=== PATIENT | female | born 1990 | race Caucasian/White ===

== ENCOUNTER 2022-10-18 13:22 | Emergency (ER) | payer OTHER, BC ==
[2022-10-18 16:31] LABS: POTASSIUM,K 3.5 mmol/L (3.5-5.1)
== END 2022-10-18 18:12 | disposition home or self-care (01) ==
LOC: MW.ED 13:22
DX: O20.0 Threatened abortion (principal); Z3A.01 Less than 8 weeks gestation of pregnancy
CPT/HCPCS: 36415; 76817; 76817-26; 80053; 81001; 84702; 85025; 86900; 86901; 87086; 99284

== ENCOUNTER 2022-10-27 18:44 | Emergency (ER) | payer OTHER, BC ==
[2022-10-27 20:33] LABS: CARBON DIOXIDE,CO2 31.2 mmol/L (21.0-32.0); POTASSIUM,K 3.9 mmol/L (3.5-5.1)
== END 2022-10-27 21:03 | disposition home or self-care (01) ==
LOC: MW.ED 18:44
DX: O20.0 Threatened abortion (principal); Z79.899 Other long term (current) drug therapy
CPT/HCPCS: 36415; 80053; 81001; 84702; 85025; 99284

== ENCOUNTER 2023-06-18 12:51 | Emergency (ER) | payer BC, OTHER ==
[2023-06-18] MEDS: diphenhydrAMINE 50 MG Cap PO ONE (15:06)
[2023-06-18] MEDS: Famotidine 20 MG Tab PO ONE (15:06)
== END 2023-06-18 16:16 | disposition home or self-care (01) ==
LOC: MW.ED 12:51
DX: T78.40XA Allergy, unspecified, initial encounter (principal)
CPT/HCPCS: 99283; A9270

== ENCOUNTER 2023-08-31 08:04 | Emergency (ER) | payer OTHER, BC | END 2023-08-31 10:58 | disposition home or self-care (01) | LOC: MW.ED 08:04 | DX: O20.0 Threatened abortion (principal); Z79.82 Long term (current) use of aspirin; Z79.899 Other long term (current) drug therapy; Z3A.19 19 weeks gestation of pregnancy | CPT/HCPCS: 76805; 76805-26; 99283; 99284 ==

== ENCOUNTER 2024-01-13 09:29 | Inpatient (IN) | payer BC, OTHER ==
[2024-01-13] MEDS ORDERED: Carboprost Tromethamine 250 MCG/1 mL Vial IM PRN (10:16)
[2024-01-13] MEDS ORDERED: Sodium Chloride 0.9% 20 ML SDV IV PRN (10:16)
[2024-01-13] MEDS ORDERED: Tranexamic Acid IN NACL,ISO-OS 1,000 MG in Premix Bag 1 BAG IV PRN (10:16)
[2024-01-13] MEDS ORDERED: Sodium Chloride 0.9% 2.5 ML Syringe FLUSH PRN (10:16)
[2024-01-13] MEDS ORDERED: Sodium Chloride 0.9% 10 ML Syringe FLUSH PRN (10:16)
[2024-01-13] MEDS ORDERED: Water For Irrigation,Sterile 1,000 ML Container IRR PRN (10:16)
[2024-01-13] MEDS ORDERED: Misoprostol 200 MCG Tab PO PRN (10:16)
[2024-01-13] MEDS ORDERED: Butorphanol 2 MG/ML SDV IVPUSH PRN (10:16)
[2024-01-13] MEDS ORDERED: Methylergonovine 0.2 MG/1 ML Amp IM PRN (10:16)
[2024-01-13] MEDS ORDERED: Lidocaine 1% 50 ML MDV INJECT PRN (10:16)
[2024-01-13] MEDS: Lactated Ringers 1,000 ML IV SCH (10:18)
[2024-01-13] MEDS ORDERED: Oxytocin/0.9 % Sodium Chloride 30 UNIT/500 ML BAG IV SCH (10:30)
[2024-01-13 10:34] LABS: HEMATOCRIT 40.3 % (37.0-47.0); HEMOGLOBIN 13.9 g/dL (12.0-16.0); MEAN CORPUSCULAR HGB CONC 34.5 g/dL (32.0-36.0); MEAN CORPUSCULAR VOLUME 89.8 fL (83.0-99.0); MEAN PLATELET VOLUME 9.4 fL (9.4-12.3); PLATELET COUNT,PLT 331 K/uL (150-400); RED BLOOD CELL COUNT 4.49 M/uL (4.10-5.30); WHITE BLOOD CELL COUNT,WBC 7.97 K/uL (3.9-11.3)
[2024-01-13] MEDS: Ropivacaine HCl/PF 400 MG in Premix Bag 1 BAG EPIDUR SCH (11:29)
[2024-01-13] MEDS: Bupivacaine 0.5% 10 ML SDV ONE (11:30)
[2024-01-13] MEDS: Phenylephrine HCl 0.5 MG/5 ML AMP ONE (11:30)
[2024-01-13] MEDS: Ropivacaine HCl/PF 200 ML ONE (11:30)
[2024-01-13] MEDS ORDERED: ePHEDrine 50 MG/ML SDV IVPUSH PRN ×2 (11:37)
[2024-01-13] MEDS ORDERED: Phenylephrine HCl 0.5 MG/5 ML AMP IVPUSH PRN (11:37)
[2024-01-13] MEDS ORDERED: Terbutaline 1 MG/ML SDV SUBCUT PRN (13:41)
[2024-01-13] MEDS: Oxytocin/0.9 % Sodium Chloride 30 UNIT/500 ML BAG IV SCH (13:55)
[2024-01-13] MEDS ORDERED: Bupivacaine 0.25% 30 ML SDV ONE (22:36)
[2024-01-13] MEDS ORDERED: Oxytocin 10 Units/1 ML SDV ONE (22:36)
[2024-01-13] MEDS ORDERED: EPINEPHrine 1 MG/1 ML Amp ONE (22:36)
[2024-01-13] MEDS ORDERED: ceFAZolin 1 GM Vial ONE (22:36)
[2024-01-13] MEDS ORDERED: Morphine PF 10 MG/10 ML SDV ONE (22:36)
[2024-01-13] MEDS ORDERED: Ketorolac 30 MG/ML SDV ONE (22:36)
[2024-01-13] MEDS ORDERED: Ondansetron 4 MG/2 ML SDV ONE (22:36)
[2024-01-13] MEDS ORDERED: Ropivacaine 0.5% 5 MG/ML 30 ML SDV ONE (22:36)
[2024-01-13] MEDS ORDERED: fentaNYL 100 MCG/2 ML SDV ONE (22:36)
[2024-01-13] MEDS ORDERED: Bupivacaine 0.5% 10 ML SDV ONE (22:37)
[2024-01-13] MEDS ORDERED: Lidocaine 2% 5 ML SDV ONE (22:37)
[2024-01-13] MEDS ORDERED: Azithromycin 500 MG Vial ONE (23:01)
[2024-01-14] MEDS ORDERED: fentaNYL 100 MCG/2 ML SDV IVPUSH PRN (00:04)
[2024-01-14] MEDS ORDERED: diphenhydrAMINE 50 MG/ML SDV IVPUSH PRN ×2 (00:04→00:19)
[2024-01-14] MEDS ORDERED: Acetaminophen/oxyCODONE 325-5 MG Tab PO PRN (00:04)
[2024-01-14] MEDS ORDERED: Naloxone 0.4 MG/ML SDV IVPUSH PRN (00:04)
[2024-01-14] MEDS ORDERED: HYDROmorphone 1 MG/ML Syringe IVPUSH PRN (00:04)
[2024-01-14] MEDS ORDERED: Ondansetron 4 MG/2 ML SDV IVPUSH PRN ×3 (00:04→00:19)
[2024-01-14] MEDS ORDERED: Metoclopramide 10 MG/2 ML SDV IVPUSH PRN (00:04)
[2024-01-14] MEDS ORDERED: droPERidol 5 MG/2 ML SDV IVPUSH PRN (00:04)
[2024-01-14] MEDS ORDERED: ePHEDrine 50 MG/ML SDV IVPUSH PRN (00:04)
[2024-01-14] MEDS ORDERED: fentaNYL 50 MCG/ML SDV IVPUSH PRN (00:04)
[2024-01-14] MEDS ORDERED: Morphine 2 MG/ML SYRINGE IVPUSH PRN (00:04)
[2024-01-14] MEDS ORDERED: Albuterol 0.083% 2.5 MG/3 ML Neb Soln NEB PRN (00:04)
[2024-01-14] MEDS ORDERED: Methylergonovine 0.2 MG/1 ML Amp IM PRN (00:19)
[2024-01-14] MEDS ORDERED: Oxytocin 10 Units/1 ML SDV IM PRN (00:19)
[2024-01-14] MEDS ORDERED: Bisacodyl 10 MG Supp RECTAL PRN (00:19)
[2024-01-14] MEDS ORDERED: Lanolin 100% Cream 7 GM Tube TOP PRN (00:19)
[2024-01-14] MEDS ORDERED: Misoprostol 200 MCG Tab RECTAL PRN (00:19)
[2024-01-14] MEDS ORDERED: Oxytocin/0.9 % Sodium Chloride 30 UNIT/500 ML BAG IV SCH (00:30)
[2024-01-14] MEDS ORDERED: Lactated Ringers 1,000 ML IV SCH (00:30)
[2024-01-14] MEDS: Ketorolac 30 MG/ML SDV IVPUSH SCH (01:32)
[2024-01-14] MEDS: Acetaminophen 1,000 MG in Premix Bag 1 BAG IV SCH (01:33)
[2024-01-14 06:11] LABS: BASOPHILS ABSOLUTE AUTO 0.02 K/uL (0.00-0.20); BASOPHILS PERCENT AUTO 0.1 % (0.0-1.0); HEMATOCRIT 33.9 % (37.0-47.0); HEMOGLOBIN 11.9 g/dL (12.0-16.0); IMMATURE GRAN ABSOLUTE AUTO 0.12 K/uL (0.00-0.05); IMMATURE GRAN PERCENT AUTO 0.7 % (0.0-0.4); LYMPHOCYTES PERCENT AUTO 6.7 % (24.0-44.0); MEAN CORPUSCULAR HEMOGLOBIN 31.5 pg (28.0-32.0); MEAN CORPUSCULAR HGB CONC 35.1 g/dL (32.0-36.0); MEAN CORPUSCULAR VOLUME 89.7 fL (83.0-99.0); MEAN PLATELET VOLUME 9.7 fL (9.4-12.3); MONOCYTES ABSOLUTE AUTO 0.32 K/uL (0.00-0.80); MONOCYTES PERCENT AUTO 1.8 % (0.0-8.0); NEUTROPHILS PERCENT AUTO 90.7 % (41.0-71.0); PLATELET COUNT,PLT 267 K/uL (150-400); RED BLOOD CELL COUNT 3.78 M/uL (4.10-5.30); WHITE BLOOD CELL COUNT,WBC 17.86 K/uL (3.9-11.3)
[2024-01-14] MEDS: Docusate Sodium 100 MG Cap PO SCH (09:37)
[2024-01-14] MEDS: Cephalexin 500 MG Cap PO SCH (14:29)
[2024-01-14] MEDS: metroNIDAZOLE 250 MG Tab PO SCH (14:29)
[2024-01-15] MEDS: Ibuprofen 800 MG Tab PO PRN (07:53)
[2024-01-15] MEDS: Acetaminophen 500 MG Tab PO PRN (11:46)
[2024-01-15] MEDS: oxyCODONE 5 MG Tab PO PRN (14:08)
== END 2024-01-15 15:28 | disposition home or self-care (01) | DRG 540 ==
LOC: MW.OBCHECK 09:29 → MW.OB 11:57 → OBSVTOIN 23:02 → MW.OB 23:02
PROVIDERS: ADMIT Obstetrics & Gynecology; ATTEND Obstetrics & Gynecology Obstetrics
PROC: 10D00Z1 Extraction of Products of Conception, Low, Open Approach (ICD-10-PCS; principal; 2024-01-13 23:00)
DX: O76 Abnormality in fetal heart rate and rhythm complicating labor and delivery (principal); Z3A.39 39 weeks gestation of pregnancy; Z37.0 Single live birth; O34.211 Maternal care for low transverse scar from previous cesarean delivery; O24.420 Gestational diabetes mellitus in childbirth, diet controlled; O99.284 Endocrine, nutritional and metabolic diseases complicating childbirth; E03.9 Hypothyroidism, unspecified; Z79.890 Hormone replacement therapy
CPT/HCPCS: 36415; 51702; 59025; 82947; 85025; 85027; 86592; 86850; 86900; 86901; A9270-GY; J0131; J0171; J0456; J0665; J0690; J1100; J1885; J2274; J2405; J2590; J2795; J3010; J3490; J7120